=== PATIENT | female | born 1975 | race Two or more races ===

== ENCOUNTER 2021-12-28 16:43 | Emergency (ER) | payer BC, OTHER ==
[2021-12-28 16:56] VITALS: BP 116/68; PULSE 97; TEMP 97.7; BMI 29.2
[2021-12-28] MEDS ORDERED: ACETAMINOPHEN 500 MG TABLET (FP) PO ONE (18:31)
[2021-12-28] MEDS ORDERED: ACETAMINOPHEN 500 MG TABLET (FP) ONE (18:32)
[2021-12-28] MEDS ORDERED: DIPHTH,PERTUSS(ACELL),TET 0.5 ML DISP.SYRIN IM ONE ×2 (18:34→18:38)
== END 2021-12-28 20:48 | disposition home or self-care (01) ==
LOC: JERFT 16:43
PROC: 3E0234Z Introduction of Serum, Toxoid and Vaccine into Muscle, Percutaneous Approach (ICD-10-PCS; principal; 2021-12-28)
DX: S62.606A Fracture of unspecified phalanx of right little finger, initial encounter for closed fracture (principal); S00.03XA Contusion of scalp, initial encounter; W19.XXXA Unspecified fall, initial encounter; Y92.9 Unspecified place or not applicable
CPT/HCPCS: 70450-TC; 73140-TC-RT-FY; 90715; 99284-25